=== PATIENT | male | born 2000 | race African-American/Black ===

== ENCOUNTER 2019-04-02 02:43 | Emergency (ER) | payer OTHER ==
[2019-04-02 02:51] VITALS: BP 128/80; PULSE 72; RESP 18; TEMP 98.3
[2019-04-02] MEDS ORDERED: AMOXIC-POT CLAV 875MG STARTER 2 EACH TABLET PO STA (03:20)
[2019-04-02] MEDS ORDERED: IBUPROFEN 600 MG STARTER PACK 4 TAB BTL PO STA (03:20)
--- NOTE | 2019-04-02 03:22 | ED ---
Animal Bite HPI - General Chief Complaint: Animal Bite Stated Complaint: Dog bite Time Seen by Provider: 04/02/19 03:04 Source: patient Mode of arrival: ambulatory Limitations: physical limitation - History of Present Illness Initial Comments: 18-year-old male patient presents to the emergency department today for evaluation of dog bite to the bilateral hands. Patient states on 11:30 this evening he was sleeping when the dog attacked his hands. Patient states he is able to get the bleeding under control. Denies any difficulty with range of motion to the fingers. Patient states he did cleanse the wounds afterward. He denies any other areas of injury. States his tetanus vaccine is not up-to-date. Patient denies any headache, neck pain, back pain, chest pain, shortness of breath, dizziness, weakness, abdominal pain, nausea, vomiting, or difficulties with bowel movements or urination. - Related Data Previous Rx's Medication Instructions Recorded Amoxic-Pot Clav 875-125Mg 1 tab PO Q12HR #14 tablet 04/02/19 [Augmentin 875-125] Ibuprofen [Motrin] 600 mg PO Q8HR PRN #30 tab 04/02/19 Allergies Allergy/AdvReac Type Severity Reaction Status Date / Time ceftriaxone sodium Allergy Unknown Verified 04/02/19 02:51 [From Rocephin] Review of Systems ROS Statement: Those systems with pertinent positive or pertinent negative responses have been documented in the HPI. ROS Other: All systems not noted in ROS Statement are negative. Past Medical History Past Medical History: No Reported History History of Any Multi-Drug Resistant Organisms: None Reported Past Surgical History: No Surgical Hx Reported Past Psychological History: No Psychological Hx Reported Smoking Status: Current some day smoker Past Alcohol Use History: None Reported Past Drug Use History: Marijuana General Exam Limitations: physical limitation General appearance: alert, in no apparent distress, other (This is a well- developed, well-nourished adult male patient in no acute distress. Vital signs upon presentation are temperature 98.3F, pulse 72, respirations 18, blood pressure 120/80 and pulse ox 100% on room air.) Respiratory exam: Present: normal lung sounds bilaterally. Absent: respiratory distress, wheezes, rales, rhonchi, stridor Cardiovascular Exam: Present: regular rate, normal rhythm, normal heart sounds. Absent: systolic murmur, diastolic murmur, rubs, gallop, clicks Extremities exam: Present: full ROM, normal capillary refill, other (There are multiple superficial, tiny lacerations to the dorsal aspect of the right index finger, abrasion noted to the dorsal aspect of the right middle finger near the MCP joint. There is mild soft tissue swelling in the index finger. Skin is otherwise pink, warm, dry. Cap refills less than 3 seconds. Radial pulses 2+ and equal bilaterally. There is a superficial abrasion to the left ring finger. Bleeding is controlled. ). Absent: normal inspection, tenderness, pedal edema, joint swelling, calf tenderness Neurological exam: Present: alert, oriented X3, CN II-XII intact Psychiatric exam: Present: normal affect, normal mood Skin exam: Present: warm, dry, intact, normal color. Absent: rash Course Vital Signs 04/02/19 02:46 Temperature 98.3 F Pulse Rate 72 Respiratory 18 Rate Blood Pressure 128/80 O2 Sat by Pulse 100 Oximetry Medical Decision Making - Medical Decision Making 18-year-old male patient presents to the emergency department today for evaluation of dog bite to the bilateral hands. Wounds were cleansed. Left open, did not require repair. Started on Augmentin. Tetanus was updated. Nursing staff apply bacitracin ointment and dressed the wounds. He'll be discharged follow up with his primary care physician for recheck in 1-2 days. Return parameters were discussed in detail. He verbalizes understanding and agrees with this plan. Disposition Clinical Impression: Dog bite Disposition: HOME SELF-CARE Condition: Good Instructions (If sedation given, give patient instructions): Animal Bite (ED) Additional Instructions: Complete antibiotic prescription in full. Take medication for pain as needed. Keep wounds clean and dry. Follow up with your primary care physician for recheck in 1-2 days. Return to the emergency department for any new, worsening, or concerning symptoms. Prescriptions: Amoxic-Pot Clav 875-125Mg [Augmentin 875-125] 1 tab PO Q12HR #14 tablet Ibuprofen [Motrin] 600 mg PO Q8HR PRN #30 tab PRN Reason: Pain Is patient prescribed a controlled substance at d/c from ED?: No Referrals: Cesar Sears DO [STAFF PHYSICIAN] - 1-2 days Time of Disposition: 03:22
[2019-04-02] MEDS ORDERED: DIPH,PERTUS(ACELL)TETVAC-LF 0.5 ML VIAL IM ONE (03:36)
== END 2019-04-02 04:05 | disposition home or self-care (01) ==
LOC: EC 02:43
DX: S60.470A Other superficial bite of right index finger, initial encounter (principal); S60.472A Other superficial bite of right middle finger, initial encounter; S60.475A Other superficial bite of left ring finger, initial encounter; F17.200 Nicotine dependence, unspecified, uncomplicated; Z88.1 Allergy status to other antibiotic agents; Z23 Encounter for immunization; W54.0XXA Bitten by dog, initial encounter; Y93.89 Activity, other specified
CPT/HCPCS: 90471; 90715; 99283

== ENCOUNTER 2019-09-18 01:24 | Emergency (ER) | payer OTHER ==
[2019-09-18 01:37] VITALS: BP 144/81; PULSE 84; RESP 18; TEMP 97.9
[2019-09-18] MEDS ORDERED: KETOROLAC 30 MG/ML 1 ML VIAL IM STA (01:58)
--- NOTE | 2019-09-18 01:58 | ED ---
Fall HPI - General Chief Complaint: Fall Stated Complaint: [facility] Rt Shoulder Injury Time Seen by Provider: 09/18/19 01:42 Source: patient Mode of arrival: ambulatory - History of Present Illness Initial Comments: Patient 19-year-old male presenting to emergency department with a chief complaint of right shoulder pain. Patient reports yesterday he was at work when he slipped, fell and landed on the right side of his body. Patient reports has since developed a dull aching region. 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 Patient reports he developed a burning sensation afterward. Patient denies taking any medication to alleviate his symptoms. Denies any numbness or tingling. Denies any head injury or loss of consciousness. - Related Data Previous Rx's Medication Instructions Recorded Amoxic-Pot Clav 875-125Mg 1 tab PO Q12HR #14 tablet 04/02/19 [Augmentin 875-125] Ibuprofen [Motrin] 600 mg PO Q8HR PRN #30 tab 04/02/19 Allergies Allergy/AdvReac Type Severity Reaction Status Date / Time ceftriaxone sodium Allergy Unknown Verified 09/18/19 01:37 [From Rocephin] Review of Systems ROS Statement: Those systems with pertinent positive or pertinent negative responses have been documented in the HPI. ROS Other: All systems not noted in ROS Statement are negative. Past Medical History Past Medical History: No Reported History History of Any Multi-Drug Resistant Organisms: MRSA Date of last positivie culture/infection: 2015 MDRO Source:: buttocks Past Surgical History: No Surgical Hx Reported Past Psychological History: No Psychological Hx Reported Smoking Status: Current some day smoker Past Alcohol Use History: None Reported Past Drug Use History: Marijuana General Exam Limitations: no limitations General appearance: alert, in no apparent distress Head exam: Present: atraumatic, normocephalic, normal inspection Eye exam: Present: normal appearance Pupils: Present: normal accommodation ENT exam: Present: normal exam Neck exam: Present: normal inspection, full ROM. Absent: tenderness Respiratory exam: Present: normal lung sounds bilaterally Cardiovascular Exam: Present: regular rate, normal rhythm, normal heart sounds Extremities exam: Present: normal inspection, full ROM, tenderness (Positive empty can test. Positive Fishman and right upper currently.) Back exam: Present: normal inspection, full ROM Neurological exam: Present: alert, oriented X3 Psychiatric exam: Present: normal affect, normal mood Skin exam: Present: warm, dry, intact, normal color Course Vital Signs 09/18/19 01:33 Temperature 97.9 F Pulse Rate 84 Respiratory 18 Rate Blood Pressure 144/81 O2 Sat by Pulse 98 Oximetry Medical Decision Making - Medical Decision Making Patient is 19-year-old male presenting to emergency Department with chief complaint of shoulder pain. Shoulder x-rays unremarkable. Physical examination is unremarkable for any bone deformities. Patient is a have positive empty can test and positive Fishman in the right upper extremity. I suspect the patient has suffered a rotator cuff injury after fall. Patient was given Toradol in the ED. On reevaluation patient reports improvement in symptoms. Patient vised follow-up with commissioning specialist. Return primers were thoroughly discussed with patient was understanding and agreeable. Case discussed with physician. Disposition Clinical Impression: Fall, Right shoulder pain, Rotator cuff injury Disposition: HOME SELF-CARE Condition: Stable Instructions (If sedation given, give patient instructions): Rotator Cuff Injury (ED) Additional Instructions: Follow-up with an commissioning specialist. Return to emergency department if symptoms worsen. Alternate between Tylenol and Motrin for pain control. Is patient prescribed a controlled substance at d/c from ED?: No Referrals: None,Stated [Primary Care Provider] - 1-2 days Chadd June DO [Medical Doctor] - 1-2 days Time of Disposition: 02:41
--- NOTE | 2019-09-18 02:03 | XR ---
EXAMINATION TYPE: XR shoulder complete RT DATE OF EXAM: 09/18/2019 COMPARISON: NONE HISTORY: Fall. Pain. TECHNIQUE: 3 views FINDINGS: I see no fracture nor dislocation. Joint spaces are normal. There is no pathologic calcific ation. IMPRESSION: Negative right shoulder exam.
== END 2019-09-18 03:10 | disposition home or self-care (01) ==
LOC: EC 01:24
DX: S46.001A Unspecified injury of muscle(s) and tendon(s) of the rotator cuff of right shoulder, initial encounter (principal); F17.200 Nicotine dependence, unspecified, uncomplicated; Z88.1 Allergy status to other antibiotic agents; Z86.14 Personal history of Methicillin resistant Staphylococcus aureus infection; W01.0XXA Fall on same level from slipping, tripping and stumbling without subsequent striking against object, initial encounter; Y92.69 Other specified industrial and construction area as the place of occurrence of the external cause; Y99.0 Civilian activity done for income or pay
CPT/HCPCS: 73030; 99283; 96372; J1885

== ENCOUNTER 2021-03-12 20:41 | Emergency (ER) | payer OTHER ==
[2021-03-12 20:45] VITALS: RESP 18
[2021-03-12] MEDS ORDERED: ONDANSETRON 4 MG/2 ML VIAL IVP STA (20:57)
[2021-03-12] MEDS ORDERED: MORPHINE SULFATE 4 MG/ML SYRINGE IV STA (20:57)
[2021-03-12] MEDS ORDERED: SODIUM CHLORIDE 0.9% 1,000 ML IV STA (20:57)
[2021-03-12] MEDS ORDERED: diphenhydrAMINE 50 MG/ML 1 ML VIAL IVP STA (20:57)
[2021-03-12] MEDS ORDERED: ACETAMINOPHEN TAB 325 MG TAB PO STA (21:42)
--- NOTE | 2021-03-12 21:55 | CT ---
EXAMINATION TYPE: CT brain wo con DATE OF EXAM: 03/12/2021 COMPARISON: None HISTORY: Headache, neck pain, and fever. CT DLP: 1111.4 mGycm Automated exposure control for dose reduction was used. Ventricles have normal size. There is no mass effect nor midline shift. There is no sign of intracran ial hemorrhage. The calvarium is intact. There is normal aeration of the mastoid sinuses. There is so me mucosal thickening in the right side ethmoid air cells. IMPRESSION: Negative unenhanced head CT scan.
[2021-03-12] MEDS ORDERED: IBUPROFEN 600 MG TAB PO STA (22:17)
--- NOTE | 2021-03-12 23:24 | ED ---
General Adult HPI - General Chief complaint: Headache Stated complaint: migraine,fever Time Seen by Provider: 03/12/21 20:50 Source: patient, RN notes reviewed Mode of arrival: ambulatory Limitations: no limitations - History of Present Illness Initial comments: Patient is a 20-year-old male that presents to emergency department complaining of a headache fever and not feeling well for the past day. He notes he can emergency room to get evaluated and get a Covid test. Patient denies having any headaches or history of headaches. He notes that this is the first was had like this where it is severe enough to bring him in. He denied any chest pain shortness of breath nausea vomiting diarrhea constipation - Related Data Home Medications Medication Instructions Recorded Confirmed No Known Home Medications 03/12/21 03/12/21 Allergies Allergy/AdvReac Type Severity Reaction Status Date / Time ceftriaxone sodium Allergy Unknown Verified 03/12/21 21:42 [From Rocephin] Review of Systems ROS Statement: Those systems with pertinent positive or pertinent negative responses have been documented in the HPI. ROS Other: All systems not noted in ROS Statement are negative. Past Medical History Past Medical History: No Reported History History of Any Multi-Drug Resistant Organisms: MRSA Date of last positivie culture/infection: 2015 MDRO Source:: buttocks Past Surgical History: No Surgical Hx Reported Past Psychological History: No Psychological Hx Reported Smoking Status: Current every day smoker Past Alcohol Use History: Occasional Past Drug Use History: Marijuana General Exam Limitations: no limitations General appearance: alert, in no apparent distress Head exam: Present: atraumatic, normocephalic, normal inspection Eye exam: Present: normal appearance, PERRL, EOMI. Absent: scleral icterus, conjunctival injection, periorbital swelling Neck exam: Present: normal inspection Respiratory exam: Present: normal lung sounds bilaterally. Absent: respiratory distress, wheezes, rales, rhonchi, stridor Cardiovascular Exam: Present: regular rate, normal rhythm, normal heart sounds. Absent: systolic murmur, diastolic murmur, rubs, gallop, clicks GI/Abdominal exam: Present: soft, normal bowel sounds. Absent: distended, tenderness, guarding, rebound, rigid Extremities exam: Present: normal inspection, full ROM, normal capillary refill. Absent: tenderness, pedal edema, joint swelling, calf tenderness Neurological exam: Present: alert, oriented X3 Psychiatric exam: Present: normal affect, normal mood Skin exam: Present: warm, dry, intact, normal color. Absent: rash Course Vital Signs 03/12/21 03/12/21 03/12/21 20:43 22:20 23:20 Temperature 103.0 F H 102.3 F H 102.3 F H Pulse Rate 113 H 111 H 102 H Respiratory 18 18 18 Rate Blood Pressure 133/75 158/73 140/72 O2 Sat by Pulse 95 97 99 Oximetry Medical Decision Making - Medical Decision Making 20-year-old male complaining of a headache fever and generalized not feeling well for the past day. CT of the brain, 1 L normal saline, 4 mg of morphine, 4 mg Zofran, 50 mg Benadryl ordered. 650 mg of Tylenol ordered for fever. Computed tomography scan of the brain negative for any acute process. 600 mg of Motrin ordered for the fever. Covid test ordered and was positive. Patient wishes to undergo monoclonal antibody infusion. Case discussed with Dr. Carrillo, patient can discharge home after IV infusion. - Lab Data Lab Results 03/12/21 Range/Units 22:23 Coronavirus (PCR) Detected A (Not Detectd) - Radiology Data Radiology results: report reviewed, image reviewed CT of the brain: Negative unenhanced head CT. Disposition Clinical Impression: COVID Disposition: HOME SELF-CARE Condition: Stable Instructions (If sedation given, give patient instructions): Coronavirus Disease 2019 (COVID-19) Additional Instructions: Please return to the Emergency Department if symptoms worsen or any other concerns. Follow-up with primary care as soon as possible. Quarantine per CDC guidelines. Get plenty or rest, increase oral fluids. Alternate Tylenol Motrin for fevers aches and pains. Is patient prescribed a controlled substance at d/c from ED?: No Referrals: None,Stated [Primary Care Provider] - 1-2 days Time of Disposition: 23:24
[2021-03-12] MEDS ORDERED: CASIRIVIMAB (REGN10933) (EUA) 600 MG, IMDEVIMAB (REGN10987) (EUA) 600 MG in SODIUM CHLO... IVPB ONE (23:45)
[2021-03-12] MEDS ORDERED: SODIUM CHLORIDE 0.9% 50 ML IVPB ONE (23:45)
--- NOTE | 2021-03-12 23:59 | XR ---
EXAMINATION TYPE: XR chest 1V DATE OF EXAM: 03/12/2021 COMPARISON: NONE HISTORY: Cough TECHNIQUE: Single view FINDINGS: Heart and mediastinum are normal. Lungs are clear. Diaphragm is normal. Bony thorax is inta ct. IMPRESSION: Normal chest.
[2021-03-13 02:12] VITALS: BP 122/69; PULSE 97; TEMP 99.3
== END 2021-03-13 02:06 | disposition home or self-care (01) ==
LOC: EC 20:41
DX: U07.1 COVID-19 (principal); F17.200 Nicotine dependence, unspecified, uncomplicated; F12.90 Cannabis use, unspecified, uncomplicated; Z88.1 Allergy status to other antibiotic agents
CPT/HCPCS: 99284; 96365; 96375 ×3; 96361; 87635; 71045; 70450; J2270; J1200; J2405